=== PATIENT | male | born 1950 | race Two or more races ===

== ENCOUNTER 2016-12-20 18:15 | Emergency (ER) | payer MEDICARE, BC ==
[2016-12-20 18:55] VITALS: BP 119/79
[2016-12-20] MEDS ORDERED: Lidocaine 2% W/EPI 1:100,000* 20 ML MDV INJ ONE (19:32)
[2016-12-20] MEDS ORDERED: Tetan/Diph/Pertus SYR(Tdap)* 0.5 ML SYR(BOOSTRIX) use SYR IM ONE ×2 (19:58→20:00)
--- NOTE | 2016-12-20 20:04 | UC ---
Bebe Goldman Thomas, scribed for Sully Lee MD on 12/20/16 at 1929 . Skin Complaint HPI - HPI Summary HPI Summary: The pt is a 66 y/o M presenting to [facility] [place] c/o 1.5cm laceration to the top of his head s/p being scratched by a nail today at 18:00. This occurred in his attic when he was checking for a leak. The pain is aggravated and alleviated by nothing. 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 He does not recall his last tetanus vaccination and believes his last tetanus vaccination was more than five years ago. He is not on any daily medication. He does not take blood thinners. PMHx: prostate CA, bladder CA, anxiety, radiation therapy (10/2016). PSHx: prostatectomy, cholecystectomy. SHx: former smoker, occasional alcohol use , no illicit drug use. FHx: CA. He has a cystoscopy scheduled within the week. The patients PCP is Dr. Jovel. Patients medication reviewed this visit. - History of Current Complaint Chief Complaint: UCLaceration Time Seen by Provider: 12/20/16 19:20 Stated Complaint: HEAD LACERATION Hx Obtained From: Patient, Family/[employer] - granddaughter present Onset/Duration: Lasting Hours - onset today at 18:00, Still Present Current Severity: Mild Location: Other - Head Aggravating: Nothing Alleviating: Nothing Associated Signs & Symptoms: Negative: Fever Related History: Other: - POS: laceration to the top of his head - Allergy/Home Medications Allergies/Adverse Reactions: Allergies Allergy/AdvReac Type Severity Reaction Status Date / Time ENVIRONMENTAL/SEASONAL Allergy Unknown CONGESTION, Uncoded 12/20/16 18:54 HAYFEVER SNEEZING, ITCHY EYES, Home Medications: Home Medications Antispasmodic* 12/20/16 [History] Immunotherapy* 12/20/16 [History] Review of Systems Constitutional: Negative Skin: Other - POS: laceration to the top of his head (1.5cm) Eyes: Negative ENT: Negative Respiratory: Negative Cardiovascular: Negative Gastrointestinal: Negative Genitourinary: Negative Motor: Negative Neurovascular: Negative Musculoskeletal: Negative Neurological: Negative Psychological: Negative All Other Systems Reviewed And Are Negative: Yes PMH/Surg Hx/FS Hx/Imm Hx Previously Healthy: Yes Psychological History: Anxiety Cancer History: Prostate Cancer, Other - POS: bladder cancer Other Cancer History: prostate - Surgical History Surgical History: Yes Surgery Procedure, Year, and Place: 09/2009 PROSTATECTOMY, [place] [id number] OPEN CHOLECYSTECTOMY, [place] 03/2014 BLADDER CYTOSCOPY, 2 AT [facility] [place], 1 @ [place] [id number] DEVIATED SEPTUM- REPAIR, [facility], LEFT ulnar shortening 09/2011 - Family History Known Family History: Positive: Other - POS: CA - Social History Occupation: Employed Full-time Lives: With Family Alcohol Use: Occasionally Alcohol Amount: 1 GLASS WINE Substance Use Type: None Smoking Status (MU): Former Smoker Type: Cigarettes Amount Used/How Often: 6 CIGARETTES PER DAY X AGE 17-22 YEARS Have You Smoked in the Last Year: No When Did the Patient Quit Smoking/Using Tobacco: 1972 - Immunization History Most Recent Tetanus Shot: UNKNOWN Physical Exam Triage Information Reviewed: Yes Appearance: Well-Appearing, No Pain Distress, Well-Nourished Vital Signs: Initial Vital Signs Temp 97.7 F 12/20/16 18:50 Pulse 61 12/20/16 18:50 Resp 16 12/20/16 18:50 BP 119/79 12/20/16 18:50 Pulse Ox 98 12/20/16 18:50 Vital Signs Reviewed: Yes Eye Exam: Normal Eyes: Positive: Conjunctiva Clear ENT: Positive: Hearing grossly normal, Pharynx normal, TMs normal, Other: - no hemotymo b/l no septal hematoma b/l Neck: Positive: Supple, Nontender, No Lymphadenopathy Respiratory: Positive: Chest non-tender, Lungs clear, Normal breath sounds, No respiratory distress, No accessory muscle use Cardiovascular Exam: Normal Cardiovascular: Positive: RRR, No Murmur, Pulses Normal Abdominal Exam: Normal Abdomen Description: Positive: Nontender, No Organomegaly, Soft Bowel Sounds: Positive: Present Musculoskeletal Exam: Normal Neurological Exam: Normal Psychological Exam: Normal - Pt with 1.5cm laceration superior occiput area - no active bleeding no crepitus. no fluctuance Laceration Repair - Laceration Repair 1 Description: Linear Laceration Size After Repair: Length (cm) - 1.5 cm Modified For Repair: No Type Injection: Local Anesthesia Used: 2.0% Lido - 1.5 mL Additive Used (in ml): Epi Cleansing Completed Via Routine Prep: Yes Closure Material: Laurence - 2 Suture Of: Skin - Good approximation Course/Dx - Course Course Of Treatment: The patient presents to [facility] with a 1.5 cm head laceration s /p being scratched by a nail today at 18:00. He does not recall his last tetanus vaccination. A laceration repair was performed. 2 laurence placed. tdap pdated. reviewed s/s infection wound care. staple removal - Diagnoses Provider Diagnoses: scalp laceration Discharge - Discharge Plan Condition: Stable Disposition: HOME Patient Education Materials: Diphtheria/Pertussis/Tetanus Vaccine (By injection ), Laceration (ED), Staple Care (ED) Referrals: Selene Jovel MD [Primary Care Provider] - Additional Instructions: - keep wound clean and dry -apply a thin layer of antibiotic ointment 2 times a day (neosporin, poly sporin ) - laurence need to come out in 5-7 days - call your doctor or return here - you may make a web appointment if you return here - you received a tetanus vaccine today - this will likely cause arm soreness tomorrow - Call your doctor or return with questions or concerns The documentation as recorded by the Bebe rivero Thomas accurately reflects the service I personally performed and the decisions made by , Sully Lee MD.
== END 2016-12-20 20:05 | disposition home or self-care (01) ==
LOC: UCEAST 18:15
DX: S01.01XA Laceration without foreign body of scalp, initial encounter (principal); W45.0XXA Nail entering through skin, initial encounter; Y93.89 Activity, other specified; Y92.008 Other place in unspecified non-institutional (private) residence as the place of occurrence of the external cause; Z23 Encounter for immunization; F41.9 Anxiety disorder, unspecified; Z85.46 Personal history of malignant neoplasm of prostate; Z85.51 Personal history of malignant neoplasm of bladder; Z87.891 Personal history of nicotine dependence
CPT/HCPCS: 12001; 90471; 90715; 99211; G0463

== ENCOUNTER → 2018-05-09 17:04 | Emergency (ER) | payer MEDICARE, BC ==
[~2018-05-09 17:04] MED LIST: Iohexol 350* (CONTRAST) 500 ML MDV IV ONE
[2018-05-09 20:42] LABS: ABS Basophils 0 10^3/ul (0-0.2); ABS Eosinophils 0.3 10^3/ul (0-0.6); ABS Lymphocytes 2.2 10^3/ul (1.0-4.8); ABS Monocytes 0.5 10^3/ul (0-0.8); ABS Neutrophils 4.4 10^3/ul (1.5-7.7); ABS Nucleated RBC 0 10^3/ul; Eosinophil % 4.6 %; Hematocrit 44 % (42-52); Hemoglobin 14.9 g/dl (14.0-18.0); Lymphocyte % 29.6 %; Mean Corpuscular HGB Conc 34 g/dl (31-36); Mean Corpuscular Hemoglobin 28 pg (27-31); Mean Corpuscular Volume 84 fL (80-94); Mean Platelet Volume 8.4 fL (7.4-10.4); Nucleated Red Blood Cells % 0; Platelet Count 216 10^3/ul (150-450); Red Blood Count 5.25 10^6/ul (4.00-5.40); Red Cell Distribution Width 14 % (10.5-15); White Blood Count 7.5 10^3/ul (3.5-10.8)
[2018-05-09 21:10] LABS: Albumin 4.4 g/dL (3.2-5.2); Albumin/Globulin Ratio 1.4 (1-3); BUN/Creatinine Ratio 21.3 (8-20); C Reactive Protein 2.87 mg/L (<8.01); Calcium 9.3 mg/dL (8.6-10.3); EGFR African American 96.6 (>60); EGFR Non-African American 79.8 (>60); Globulin 3.1 g/dL (2-4); Total Bilirubin 0.5 mg/dL (0.2-1.0); Total Protein 7.5 g/dL (6.4-8.9)
[2018-05-09 21:51] LABS: Potassium 4.2 mmol/L (3.5-5.0)
[2018-05-09 22:07] LABS: Erythrocyte Sed Rate 15 mm/Hr (0-40)
--- NOTE | 2018-05-09 22:48 | ED ---
Throat Pain/Nasal Congestion - HPI Summary HPI Summary: 67-year-old male presents with intermittent tinnitus of bilateral ears the past couple months. He states the past 3 days it has gotten worse. He also had an episode of blurry vision earlier today. He states it lasted 20 minutes and resolved. He denies any loss of vision. No double vision. No floaters. He states this has happened before a couple months ago. He states he did have a slight headache at the time. He denies any history of migraines. He denies any weakness in arms or legs. He denies any difficulties speaking. He has not followed up with eye doctor many years. He does not follow up with primary about this issue. He denies any sinus congestion. No fevers. No dizziness. He denies any visual changes at this time. He is complain of intermittent tinnitus but is not currently experiencing any. - History of Current Complaint Chief Complaint: EDEarPain Time Seen by Provider: 05/09/18 19:46 - Allergies/Home Medications Allergies/Adverse Reactions: Allergies Allergy/AdvReac Type Severity Reaction Status Date / Time ENVIRONMENTAL/SEASONAL Allergy Unknown CONGESTION, Uncoded 05/09/18 17:10 HAYFEVER SNEEZING, ITCHY EYES, PMH/Surg Hx/FS Hx/Imm Hx Endocrine/Hematology History: Denies: Hx Diabetes, Hx Systemic Lupus Erythematosus, Hx Thyroid Disease, Hx Anemia Cardiovascular History: Denies: Hx Congestive Heart Failure, Hx Hypertension, Hx Pacemaker/ICD Respiratory History: Denies: Hx Sleep Apnea - TESTED NO PROBLEMS GI History: Reports: Other GI Disorders - CHOLECYSTECTOMY FOR GALLSTONES 1974 Denies: Hx Jaundice History: Reports: Other Problems/Disorders - prostrate ca with surgery Denies: Hx Dialysis, Hx Renal Disease Musculoskeletal History: Reports: Hx Arthritis - OSTEOARTHRITIS, Other Musculoskeletal History - arthritis Denies: Hx Rheumatoid Arthritis Sensory History: Reports: Hx Contacts or Glasses - GLASSES Denies: Hx Hearing Aid Opthamlomology History: Reports: Hx Contacts or Glasses - GLASSES Neurological History: Reports: Hx Headaches - WITH INDIGESTION Psychiatric History: Denies: Hx Panic Disorder - Cancer History Cancer Type, Location and Year: prostate, BLADDER CA (TREATED WITH IMMUNOTHERAPY ) Hx Chemotherapy: No - Surgical History Surgery Procedure, Year, and Place: 09/2009 PROSTATECTOMY, [place] [id number] OPEN CHO[place]STECTOMY, [place] 03/2014 BLADDER CYTOSCOPY, 2 AT [facility] [place] [place], 1 @ [facility]; 1977 DEVIATED SEPTUM- REPAIR, [facility], LEFT ulnar shortening 09/2011 Hx Anesthesia Reactions: No Infectious Disease History: No Infectious Disease History: Denies: Traveled Outside the [place] in Last 30 Days - Family History Known Family History: Positive: Other - POS: [place] - Social History Alcohol Use: None Alcohol Amount: 1 GLASS WINE Substance Use Type: Reports: None Smoking Status (MU): Former Smoker Type: Cigarettes Amount Used/How Often: 6 CIGARETTES PER DAY X AGE 17-22 YEARS Have You Smoked in the Last Year: No Review of Systems Negative: Fever Positive: Blurred Vision. Negative: Photophobia, Diplopia, Drainage, Erythema Positive: Other - tinnitis Negative: Chest Pain Negative: Shortness Of Breath All Other Systems Reviewed And Are Negative: Yes Physical Exam Triage Information Reviewed: Yes Vital Signs On Initial Exam: Initial Vitals Temp Pulse Resp BP Pulse Ox 97.4 F 63 16 149/87 97 05/09/18 17:06 05/09/18 17:06 05/09/18 17:06 05/09/18 17:06 05/09/18 17:06 Vital Signs Reviewed: Yes Appearance: Positive: Well-Appearing Skin: Positive: Warm, Dry Head/Face: Positive: Normal Head/Face Inspection Eyes: Positive: Normal, EOMI, WILY, Conjunctiva Clear ENT: Positive: Normal ENT inspection, Pharynx normal, TMs normal Respiratory/Lung Sounds: Positive: Clear to Auscultation, Breath Sounds Present Cardiovascular: Positive: Normal, RRR Musculoskeletal: Positive: Normal Neurological: Positive: Sensory/Motor Intact, Alert, Oriented to Person Place, Time, CN Intact II-III, Other - nih zero Psychiatric: Positive: Normal - Gordy Coma Scale Best Eye Response: 4 - Spontaneous Best Motor Response: 6 - Obeys Commands Best Verbal Response: 5 - Oriented Coma Scale Total: 15 Diagnostics - Vital Signs Vital Signs Temp Pulse Resp BP Pulse Ox 05/09/18 19:30 16 05/09/18 17:06 97.4 F 63 16 149/87 97 - Laboratory Lab Results: Lab Results 05/09/18 05/09/18 Range/Units 19:28 19:28 WBC 7.5 (3.5-10.8) 10^3/ul RBC 5.25 (4.00-5.40) 10^6/ul Hgb 14.9 (14.0-18.0) g/dl Hct 44 (42-52) % MCV 84 (80-94) fL MCH 28 (27-31) pg MCHC 34 (31-36) g/dl RDW 14 (10.5-15) % Plt Count 216 (150-450) 10^3/ul MPV 8.4 (7.4-10.4) fL Neut % (Auto) 58.8 % Lymph % (Auto) 29.6 % [place] % (Auto) 6.5 % Eos % (Auto) 4.6 % Baso % (Auto) 0.5 % Absolute Neuts (auto) 4.4 (1.5-7.7) 10^3/ul Absolute Lymphs (auto) 2.2 (1.0-4.8) 10^3/ul Absolute Monos (auto) 0.5 (0-0.8) 10^3/ul Absolute Eos (auto) 0.3 (0-0.6) 10^3/ul Absolute Basos (auto) 0 (0-0.2) 10^3/ul Absolute Nucleated RBC 0 10^3/ul Nucleated RBC % 0 ESR 15 (0-40) mm/Hr Sodium 138 (135-145) mmol/L Potassium 4.2 (3.5-5.0) mmol/L Chloride 104 (101-111) mmol/L Carbon Dioxide 28 (22-32) mmol/L Anion Gap 6 (2-11) mmol/L BUN 20 (6-24) mg/dL Creatinine 0.94 (0.67-1.17) mg/dL Est GFR ( Amer) 96.6 (>60) Est GFR (Non-Af Amer) 79.8 (>60) BUN/Creatinine Ratio 21.3 H (8-20) Glucose 97 (70-100) mg/dL Calcium 9.3 (8.6-10.3) mg/dL Total Bilirubin 0.50 (0.2-1.0) mg/dL AST 22 (13-39) U/L ALT 25 (7-52) U/L Alkaline Phosphatase 72 (34-104) U/L C-Reactive Protein 2.87 (<8.01) mg/L Total Protein 7.5 (6.4-8.9) g/dL Albumin 4.4 (3.2-5.2) g/dL Globulin 3.1 (2-4) g/dL Albumin/Globulin Ratio 1.4 (1-3) Result Diagrams: 05/09/18 19:28 05/09/18 19:28 Lab Statement: Any lab studies that have been ordered have been reviewed, and results considered in the medical decision making process. - CT brain CT Interpretation Completed By: Radiologist Summary of CT Findings: IMPRESSION: 1. No acute intracranial abnormality. 2. 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 3. Mild chronic small vessel ischemic disease. cta CT Interpretation Completed By: Radiologist Summary of CT Findings: IMPRESSION: 1. Minimally atherosclerotic nonstenotic right common carotid artery. Otherwise. normal neck CTA. 2. Left piriform sinus effacement with no mucosal lesion. Consider direct. visualization. 3. Right thyroid lobe nodule. Followup with ultrasound recommended. EENT Course/Dx - Course Course Of Treatment: 67-year-old male presents with intermittent tinnitus of bilateral ears the past couple months. He states the past 3 days it has gotten worse. He also had an episode of blurry vision earlier today. He states it lasted 20 minutes and resolved. He denies any loss of vision. No double vision. No floaters. He states he did have a slight headache at the time. No dizziness. He denies any visual changes at this time. On exam has normal neuro exam. NIH zero. Extraocular movements intact. Visual hui intact. Visual acuity normal. Tympanic membranes some fluid behind TM bilateral. CT brain old bilateral AVI territorial infarcts no new acute changes. CTA no acute finding. do not suspect was an episode of amaurosis fugax as no visual loss. same with retinal artery occulsion. discussed with dr flores. will send home to follow up with optho, primary, and ENT. patient understand and agrees with plan. - Differential Diagnoses Differential Diagnoses: Retinal Artery Occlusion, Other - amaurosis fugax, vitrous detachment, CVA - Diagnoses Provider Diagnoses: Bilateral tinnitus, Blurry vision Discharge - Sign-Out/Discharge Documenting (check all that apply): Patient Departure - Discharge Plan Condition: Good Disposition: HOME Patient Education Materials: Tinnitus (ED) Forms: *Gen. Provider Communication Referrals: Selene Jovel MD [Primary Care Provider] - Huseyin Prescott MD [Medical Doctor] - Artemio Cisse MD [Medical Doctor] - Additional Instructions: Follow up with ENT about tinnitus follow up with optho about visual changes Follow up with primary Return to ED if develop any new or worsening symptoms - Billing Disposition and Condition Condition: GOOD Disposition: Home
[2018-05-09 23:42] VITALS: BP 177/79
== END | disposition home or self-care (01) ==
LOC: ED 17:04
DX: H93.13 Tinnitus, bilateral (principal); H53.8 Other visual disturbances; Z87.891 Personal history of nicotine dependence
CPT/HCPCS: 36415; 70450; 70496; 70498; 80053; 85025; 85652; 86140; 99282; Q9967

== ENCOUNTER 2019-03-29 21:30 | Emergency (ER) | payer BC, MEDICARE ==
--- OUTSIDE RECORDS SUMMARY | 2019-03-29 21:35 | XMS REPORT | Continuity of Care Document ---
:1950 External Reference #:[id number] Author Name Selene Jovel M.D. (transmitted by agent of provider Melva Carroll ) [address] [place] [address] Care Team Providers Name Role Phone Yadira Pisano MD - Adult Care Team Information Digital Media Strategist [phone] Reconstructive Orthopaedic Surgery Problems Active Problems Provider Date Malignant tumor of prostate Selene Jovel M.D. 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 Onset: 02/02/2014 Localized, primary osteoarthritis of the Yadira Pisano M.D. Onset: 02/24/2019 pelvic region and thigh Unspecified injury of muscle, fascia and Nick Acharya MD Onset: 04/17/2017 tendon of long head of biceps, left arm, subsequent encounter Medial epicondylitis Nick Acharya MD Onset: 04/17/2017 Disorder of shoulder Nick Acharya MD Onset: 04/17/2017 Social History Type Date Description Comments Sex Unknown Tobacco Use Start: Unknown End: Former Cigarette Smoker smoked from age 15 Unknown to mid twenties ETOH Use Drinks Alcoholic 4 oz wine once in a Beverages Rarely while Tobacco Use Start: Unknown End: Patient is a former quit at age 22 Unknown smoker Smoking Status Reviewed: 02/24/19 Patient is a former quit at age 22 smoker Exercise Exercises regularly Type/Frequency Allergies, Adverse Reactions, Alerts Active Allergies Reaction Severity Comments Date No Known Drug Allergy 03/31/2010 . ? nightmares with Nyquil 09/03/2012 Medications Active Medications SIG Qnty Indications Ordering Provider Date Flonase Allergy inhale two 16units Selene Jovel, 01/01/2017 Relief sprays in each M.D. 50mcg/Act nostril every Suspension day Acyclovir take 1 capsule 100caps Selene Jovel, 02/11/2014 200mg five times daily M.D. Capsules for 5 days as needed Ibuprofen prn 100tabs Unknown 200mg Tablets Medications Administered in Office Medication SIG Qnty Indications Ordering Provider Date Triamcinolone (Kenalog) Cici Saab PA-C 03/13/2017 Injection Immunizations CPT Code Status Date Vaccine Reaction Lot # [id number] Given 02/24/2019 Influenza Virus Vaccine, [id number] Quadrivalent ([id number]), Derived From Cell 12384 Given 02/19/2018 Influenza Virus Vaccine, [id number] Quadrivalent, Split, Preservative Free 21824 Given 02/02/2017 Influenza Virus Vaccine, [id number] Quadrivalent, Split, Preservative Free 54504 Given 01/18/2016 Pneumonia Vaccine no reaction noted ... [id number] 11136 Given 01/18/2016 Influenza Virus Vaccine, no reaction noted .. [id number] Quadrivalent, Split, hh Preservative Free 52138 Given 11/03/2014 Pneumococcal Conjugate [id number] Vaccine 13 Valent For Intramuscular Use Q2038 Given 01/02/2012 Fluzone Vaccine [id number] 65226 Given 03/31/2010 Influenza Virus 3Yrs & Over 60479 Given 03/02/2008 Influenza Virus 3Yrs & Over 05477 Given 03/02/2008 Influenza Virus 3Yrs & Over 60720 Given 04/10/2007 Influenza Virus 3Yrs & Over 66230 Given 04/10/2007 Influenza Virus 3Yrs & Over Vital Signs Date Vital Result Comment 02/24/2019 11:08am Height 66.25 inches 5'6.25" Weight 186.00 lb Heart Rate 68 /min BP Systolic 137 mmHg BP Diastolic 78 mmHg O2 % BldC Oximetry 98 % BMI (Body Mass Index) 29.8 kg/m2 02/24/2019 9:25am Height 66.25 inches 5'6.25" Weight 180.00 lb stated Heart Rate 68 /min BP Systolic 128 mmHg BP Diastolic 70 mmHg Respiratory Rate 14 /min Pain Level 5 BMI (Body Mass Index) 28.8 kg/m2 Results Description No Information Available Procedures Date Code Description Status 10/31/2011 03577230 Colonoscopy Completed Medical Devices Description No Information Available Encounters Type Date Location Provider Dx Diagnosis Office Visit 11/19/2018 [facility] Internal Selene Jovel, H81.319 Aural vertigo, 10:00a Medicine - [facility] unspecified ear Assessments Date Code Description Provider 02/24/2019 M25.552 Pain in left hip Yadira Pisano M.D. 02/24/2019 Z00.00 Encounter for general adult medical Selene Jovel M.D. examination without abnormal findings 02/24/2019 M54.16 Radiculopathy, lumbar region Selene Jovel M.D. 02/24/2019 M16.12 Unilateral primary osteoarthritis, left hip Yadira Pisano M.D. 02/24/2019 E78.5 Hyperlipidemia, klarissaified Selene Jovel M.D. 02/24/2019 M54.5 Low back pain Yadira Pisano M.D. 02/24/2019 Z85.46 Personal history of malignant neoplasm of Selene Jovel M.D. prostate 02/24/2019 E07.89 Other specified disorders of thyroid Selene Jovel M.D. 11/19/2018 H81.319 Aural vertigo, unspecified ear Selene Jovel M.D. Plan of Treatment Future Appointment(s):02/26/2020 9:20 am - Selene Jovel M.D. at [facility] Internal Medicine [facility]02/24/2019 - Yadira Pisano M.D.M25.552 Pain in left hipFollow up:Follow up: As [id number] Unilateral primary osteoarthritis, left hipM54.5 Low back pain Functional Status Description No Information Available Mental Status Description No Information Available Referrals Refer to Reason for Referral Status Appt Date Yadira Pisano MD hip pain Sent 02/24/[address] [place] [address] [place] [address] [phone]
--- OUTSIDE RECORDS SUMMARY | 2019-03-29 21:35 | XMS REPORT | Continuity of Care Document ---
:1950 External Reference #:[id number] Author Name Yadira Pisano M.D. (transmitted by agent of provider Nenita Henderson) Address [address] [place] [address] Care Team Providers Name Role Phone Yadira Pisano MD - Adult Care Team Information Director Bioinformatics [phone] Reconstructive Orthopaedic Surgery Problems Active Problems Provider [...] Provider Date Flonase Allergy inhale two 16units Seleneangus Jovel, 01/01/2017 Relief sprays in each M.D. [...] Code Status Date Vaccine Reaction Lot # [id number] Given 02/19/2018 Influenza Virus Vaccine, [id number] Quadrivalent, Split, Preservative Free 22903 Given 02/02/2017 Influenza Virus Vaccine, [id number] Quadrivalent, Split, Preservative Free 94194 Given 01/18/2016 Pneumonia Vaccine no reaction noted ... [id number] 13275 Given 01/18/2016 Influenza Virus Vaccine, no reaction noted .. [id number] Quadrivalent, Split, hh Preservative Free 10093 Given 11/03/2014 Pneumococcal Conjugate [id number] Vaccine 13 Valent For Intramuscular Use Q2038 Given 01/02/2012 Fluzone Vaccine [id number] 25231 Given 03/31/2010 Influenza Virus 3Yrs & Over 39555 Given 03/02/2008 Influenza Virus 3Yrs & Over 66217 Given 03/02/2008 Influenza Virus 3Yrs & Over 25620 Given 04/10/2007 Influenza Virus 3Yrs & Over 74505 Given 04/10/2007 Influenza Virus 3Yrs & Over Vital Signs Date Vital Result Comment 02/24/2019 9:25am Height 66.25 inches 5'6.25" Weight 180.00 lb stated Heart Rate 68 /min BP Systolic 128 mmHg BP Diastolic 70 mmHg Respiratory Rate 14 /min Pain Level 5 BMI (Body Mass Index) 28.8 kg/m2 11/19/2018 10:11am Height 66.25 inches 5'6.25" Weight 181.00 lb Heart Rate 56 /min BP Systolic 126 mmHg BP Diastolic 77 mmHg Body Temperature 97.2 F O2 % BldC Oximetry 95 % BMI (Body Mass Index) 29.0 kg/m2 Results Description No Information Available Procedures Date Code Description Status 10/31/2011 [id number] Colonoscopy Completed Medical Devices Description No Information Available Encounters Type Date Location Provider Dx Diagnosis Office Visit 11/19/2018 [facility] Selene Jovel, Mike81.319 Aural vertigo, 10:00a Medicine - [facility] unspecified ear Assessments Date Code Description Provider 02/24/2019 M25.552 Pain in left hip Yadira Pisano M.D. 02/24/2019 Z00.00 Encounter for general adult medical Selene Jovel M.D. examination without abnormal findings 02/24/2019 M16.12 Unilateral primary osteoarthritis, left hip Yadira Pisano M.D. 02/24/2019 M54.5 Low back pain Yadira Pisano M.D. 11/19/2018 H81.319 Aural vertigo, unspecified ear Selene Jovel M.D. Plan of Treatment 02/24/2019 - Yadira Pisano M.D.M25.552 Pain in left hipFollow up:Follow up: As [id number] Unilateral primary osteoarthritis, left hipM54.5 Low back pain Functional Status Description No Information Available Mental Status Description No Information Available Referrals Refer to Reason for Referral Status Appt Date Yadira Pisano MD hip pain Sent 02/24/[address] [place] [address] [phone]
[2019-03-29 21:41] VITALS: BP 135/79
--- NOTE | 2019-03-29 21:56 | UC ---
Eye Complaint HPI - HPI Summary HPI Summary: The patient is a 68-year-old male that noticed some left eye redness and irritation this morning. It has spread. He has no pain. He has no visual changes. He denies any trauma. He has not had any discharge. - History of Current Complaint Chief Complaint: UCEye Stated Complaint: EYE IRRITATION Time Seen by Provider: 03/29/19 21:45 Hx Obtained From: Patient Onset/Duration: Gradual Onset, Lasting Hours Timing: Constant Severity Currently: None Pain Intensity: 0 Pain Scale Used: 0-10 Numeric Location of Injury: Conjunctiva Aggravating Factor(s): Nothing Alleviating Factor(s): Nothing Associated Signs And Symptoms: Positive: Negative Eyes: 1 - subconjunctival hemorrhage - Allergies/Home Medications Allergies/Adverse Reactions: Allergies Allergy/AdvReac Type Severity Reaction Status Date / Time ENVIRONMENTAL/SEASONAL Allergy Unknown CONGESTION, Uncoded 03/29/19 21:41 HAYFEVER SNEEZING, ITCHY EYES, Home Medications: Home Medications NK [No Home Medications Reported] 03/29/19 [History Confirmed 03/29/19] PMH/Surg Hx/FS Hx/Imm Hx Previously Healthy: Yes - is - Surgical History Surgical History: Yes Surgery Procedure, Year, and Place: 09/2009 PROST[facility]CTOMY, [facility]. OPEN CHOLECYSTECTOMY, [place] 03/2014. BLADDER CYTOSCOPY, 2 AT [facility] [place], 1 @ [facility]; 1977. DEVIATED SEPTUM- REPAIR, [facility], LEFT ulnar shortening 2011. SKIN BIOPSY ON BACK - Family History Known Family History: Positive: Other - POS: [place] - Social History Alcohol Use: Rare Alcohol Amount: 1 GLASS WINE Substance Use Type: None Smoking Status (MU): Former Smoker Type: Cigarettes Amount Used/How Often: 6 CIGARETTES PER DAY X AGE 17-22 YEARS Have You Smoked in the Last Year: No When Did the Patient Quit Smoking/Using Tobacco: 1972 - Immunization History Most Recent Tetanus Shot: UNKNOWN Review of Systems All Other Systems Reviewed And Are Negative: Yes Constitutional: Positive: Negative Skin: Positive: Negative Eyes: Positive: Eye Redness ENT: Positive: Negative - prescription Respiratory: Positive: Negative Cardiovascular: Positive: Negative Gastrointestinal: Positive: Negative Genitourinary: Positive: Negative Motor: Positive: Negative Neurovascular: Positive: Negative Musculoskeletal: Positive: Negative Neurological: Positive: Negative Psychological: Positive: Negative Physical Exam Triage Information Reviewed: Yes Appearance: Well-Appearing, No Pain Distress, Well-Nourished Vital Signs: Initial Vital Signs Temp 98 F 03/29/19 21:35 Pulse 72 03/29/19 21:35 Resp 16 03/29/19 21:35 BP 135/79 03/29/19 21:35 Pulse Ox 96 03/29/19 21:35 Vital Signs Reviewed: Yes Eyes: Positive: Conjunctiva Clear - History ENT: Positive: Hearing grossly normal. Negative: Nasal congestion, Nasal drainage, Trismus, Muffled voice, Dental tenderness - of Neck: Positive: Supple, Nontender, No Lymphadenopathy Respiratory: Positive: Lungs clear, Normal breath sounds, No respiratory distress, No accessory muscle use Cardiovascular: Positive: RRR, No Murmur Abdomen Description: Positive: Nontender, No Organomegaly Musculoskeletal: Positive: ROM Intact, No Edema Neurological Exam: Normal Neurological: Positive: Alert Psychological Exam: Normal Skin Exam: Normal Eye Complaint Course/Dx - Differential Dx/Diagnosis Provider Diagnosis: Conjunctival hemorrhage, left eye Discharge ED - Sign-Out/Discharge Documenting (check all that apply): Patient Departure All imaging exams completed and their final reports reviewed: No Studies - Discharge Plan Condition: Stable Disposition: HOME Patient Education Materials: Subconjunctival Hemorrhage (ED) Referrals: Selene Jovel MD [Primary Care Provider] - If Needed - Billing Disposition and Condition Condition: STABLE Disposition: Home
== END 2019-03-29 22:03 | disposition home or self-care (01) ==
LOC: UCEAST 21:30
DX: H11.32 Conjunctival hemorrhage, left eye (principal); Z87.891 Personal history of nicotine dependence; Z91.09 Other allergy status, other than to drugs and biological substances
CPT/HCPCS: 99212; G0463